=== PATIENT | female | born 1940 | race Two or more races ===

== ENCOUNTER 2017-05-05 15:31 | Inpatient (IN) | payer OTHER ==
--- NOTE | 2017-05-05 16:00 | CPEKG ---
Heart Rate: 61 RR Interval: 984 P-R Interval: 164 QRSD Interval: 98 QT Interval: 436 QTC Interval: 440 P [place]: 67 QRS [place]: 67 T Wave [place]: 55 EKG Severity - BORDERLINE ECG - EKG Impression: SINUS RHYTHM EKG Impression: BORDERLINE T ABNORMALITIES, ANT-LAT LEADS Electronically Signed By: Chayo Claros 05-May-2017 21:09:36
[2017-05-05] MEDS ORDERED: ASPIRIN 81 MG CHEWABLE TAB PO ONE (16:02)
[2017-05-05] MEDS ORDERED: NS 500 ML IV ONE (16:02)
[2017-05-05] MEDS ORDERED: NITROGLYCERIN 2% 1 GM PACKET TP ONE (16:02)
--- NOTE | 2017-05-05 16:14 | EDPHY ---
H & P Time Seen by Provider: 05/05/17 15:47 HPI/ROS: HPI: Joanna Hewitt is a 76 yrs, female who presents with Chief Complaint: chest pain Location: midsternum Quality: sharp, pressure, radiating to the back and down left arm Duration: started yesterday Signs and Symptoms: + nausea, + dyspnea on rest and exertion, no pedal edema, + vomiting x 1 lunch prior to arrival, no palpitations Timing: intermittent Severity: 9/10 at worst, currently 6/10 Context: history of HTN, HLD, hiatal hernia, anxiety, GERD. history obtained with the help of direct mail coordinator. takes NSAID daily. Modifying Factors: tried nothing for the symptoms. Comment: history of chest pain in past. Left heart catheterization 06/25/13 showing mild nonobstructive disease. Nuclear stress test 03/22/15 showing LVEF 86 %, no ischemia. ROS: Eyes: No blurred vision Respiratory: No shortness of breath, no cough Cardiovascular: + chest pain Gastrointestinal: + nausea, + vomiting no diarrhea Genitourinary: No dysuria Extremities: No myalgias Neurologic: No weakness, no numbness Skin: No rashes Hematologic: No bruising, no bleeding MEDICAL/SURGICAL HISTORY: Hypertension, hyperlipidemia, anxiety, GERD, hiatal hernia. ovary removal. Social History: non-smoker, non-drinker, strong family support. Smoking Status: Never smoked Constitutional: Initial Vital Signs Temperature (C) 36.6 C 05/05/17 15:40 Heart Rate 63 05/05/17 15:40 Respiratory Rate 16 05/05/17 15:40 Blood Pressure 172/64 H 05/05/17 15:40 O2 Sat (%) 95 05/05/17 15:40 O2 Delivery Mode Room Air Allergies/Adverse Reactions: No Known Allergies Allergy (Verified 05/05/17 15:39) Home Medications: Medication Instructions Recorded Aspirin [Aspirin 81mg (*)] 81 mg PO DAILY 03/21/15 Losartan Potassium [Cozaar] 100 mg PO DAILY 03/21/15 Meloxicam [Mobic 7.5 mg] 7.5 mg PO DAILY 03/21/15 Metoprolol Tartrate [Lopressor 100 50 mg PO BID 03/21/15 mg (*)] Omeprazole [Prilosec 20 mg] 20 mg PO BID 03/21/15 Potassium Cl [Klor-Con 10 meq (RX)] 10 meq PO DAILY 03/21/15 Rabeprazole Sodium [Aciphex] 20 mg PO DAILY 03/21/15 Ranitidine HCl 150 mg PO BID 03/21/15 Venlafaxine HCl 50 mg PO DAILY 03/21/15 clonazePAM [Klonopin (*)] 0.25 mg PO HS PRN 03/21/15 Abilify 05/05/17 Medical Decision Making - Diagnostics EKG Interpretation: 12 lead EKG: Indication: chest pain Rhythm: sinus [place]: normal QRS: normal ST segments: nonspecific T wave: nonspecific changes COMPARISON: compared to ECG 03/22/15 with T wave changes V3-V6 The 12 lead EKG was interpreted by myself. Imaging Results: Imaging Impressions Abdomen Ultrasound 05/05/17 16:03 IMPRESSION: Gallbladder adenomyomatosis, sludge, and cholelithiasis with a positive sonographic Paula sign and a mildly thickened wall. Cholecystitis is therefore not excluded. There is no bile duct dilatation. If there is further clinical concern regarding the patient's symptoms, at a nuclear medicine hepatobiliary scan could be considered. Findings were discussed with Eleanor Ambriz PA-C at 17:27, on 05/05/2017. Chest X-Ray 05/05/17 16:03 Impression: 1. Query COPD with no superimposed acute abnormality identified. 2. A source for chest pain is not identified. 3. See above report for additional findings. ED Course/Re-evaluation: CXR, labs, EKG, oral/topical medications, IVF RUQ US SYD risk factor = Intermediate Given aspirin and nitro paste ECG showed T waves changes, unremarkable troponin, will need medical evaluation/ pre-op clearance if surgery needed elevated LFTS/lipase/total and direct bili consistent with gallstone pancreatitis called by radiology with RUQ US showing stones/sludge + Paula's sign, CBD 5.6 consistent with cholecystitis NPO, IVF, Invanz 6:00 PM ED decision to admit, spoke with (Hospitalist) Dr. Gaines, and Dr. Barnhart (surgery) for continued care Differential Diagnosis: Chest pain including but not limited to myocardial ischemia, pulmonary embolus, chest wall pain, pleural inflammation and pulmonary infectious causes, GERD, hiatal hernia. - Data Points Laboratory Results: Laboratory Results 05/05/17 17:57 05/05/17 05/05/17 05/05/17 17:57 17:57 09:18 WBC 13.34 10^3/uL H 10^3/uL (3.80-9.50) RBC 5.10 10^6/uL 10^6/uL (4.18-5.33) Hgb 15.8 g/dL g/dL (12.6-16.3) Hct 45.2 % % (38.0-47.0) MCV 88.6 fL fL (81.5-99.8) MCH 31.0 pg pg (27.9-34.1) MCHC 35.0 g/dL g/dL (32.4-36.7) RDW 11.9 % % (11.5-15.2) Plt Count 206 10^3/uL 10^3/uL (150-400) MPV Neut % (Auto) Lymph % (Auto) [place] % (Auto) Eos % (Auto) Baso % (Auto) Nucleat RBC Rel Count Absolute Neuts (auto) Absolute Lymphs (auto) Absolute Monos (auto) Absolute Eos (auto) Absolute Basos (auto) Absolute Nucleated RBC Immature Gran % Immature Gran # Sodium Pending 136 mEq/L mEq/L (134-144) Potassium Pending 3.8 mEq/L mEq/L (3.5-5.2) Chloride Pending 99 mEq/L mEq/L (97-110) Carbon Dioxide Pending 24 mEq/l mEq/l (22-31) Anion Gap Pending 13 mEq/L mEq/L (8-16) BUN Pending 18 mg/dL mg/dL (7-23) Creatinine Pending 0.8 mg/dL mg/dL (0.6-1.0) Estimated GFR Pending > 60 Glucose Pending 130 mg/dL H mg/dL (70-100) Calcium Pending 10.1 mg/dL mg/dL (8.5-10.4) Total Bilirubin Pending 2.1 mg/dL H mg/dL (0.1-1.4) Conjugated Bilirubin 1.5 mg/dL H mg/dL (0.0-0.5) Unconjugated Bilirubin 0.6 mg/dL mg/dL (0.0-1.1) AST Pending 187 IU/L H IU/L (14-46) ALT Pending 119 IU/L H IU/L (9-52) Alkaline Phosphatase Pending 160 IU/L H IU/L (38-126) Creatine Kinase 68 IU/L IU/L (0-156) CK-MB (CK-2) Fraction 1.16 ng/mL ng/mL (0-3.19) Troponin I < 0.012 ng/mL ng/mL (0-0.034) NT-Pro-B Natriuret Pep 185 pg/mL pg/mL (0-450) Total Protein Pending 7.8 g/dL g/dL (6.3-8.2) Albumin Pending 4.9 g/dL g/dL (3.5-5.0) Lipase Pending > 08079.0 IU/L H IU/L (23-300) 05/05/17 09:18 WBC 12.24 10^3/uL H 10^3/uL (3.80-9.50) RBC 5.37 10^6/uL H 10^6/uL (4.18-5.33) Hgb 16.4 g/dL H g/dL (12.6-16.3) Hct 47.3 % H % (38.0-47.0) MCV 88.1 fL fL (81.5-99.8) MCH 30.5 pg pg (27.9-34.1) MCHC 34.7 g/dL g/dL (32.4-36.7) RDW 12.0 % % (11.5-15.2) Plt Count 226 10^3/uL 10^3/uL (150-400) MPV 10.2 fL fL (8.7-11.7) Neut % (Auto) 78.6 % H % (39.3-74.2) Lymph % (Auto) 13.8 % L % (15.0-45.0) [place] % (Auto) 5.9 % % (4.5-13.0) Eos % (Auto) 0.7 % % (0.6-7.6) Baso % (Auto) 0.5 % % (0.3-1.7) Nucleat RBC Rel Count 0.0 % % (0.0-0.2) Absolute Neuts (auto) 9.63 10^3/uL H 10^3/uL (1.70-6.50) Absolute Lymphs (auto) 1.69 10^3/uL 10^3/uL (1.00-3.00) Absolute Monos (auto) 0.72 10^3/uL 10^3/uL (0.30-0.80) Absolute Eos (auto) 0.08 10^3/uL 10^3/uL (0.03-0.40) Absolute Basos (auto) 0.06 10^3/uL 10^3/uL (0.02-0.10) Absolute Nucleated RBC 0.00 10^3/uL 10^3/uL (0-0.01) Immature Gran % 0.5 % % (0.0-1.1) Immature Gran # 0.06 10^3/uL 10^3/uL (0.00-0.10) Sodium Potassium Chloride Carbon Dioxide Anion Gap BUN Creatinine Estimated GFR Glucose Calcium Total Bilirubin Conjugated Bilirubin Unconjugated Bilirubin AST ALT Alkaline Phosphatase Creatine Kinase CK-MB (CK-2) Fraction Troponin I NT-Pro-B Natriuret Pep Total Protein Albumin Lipase Medications Given: Discontinued Medications Aspirin (Aspirin) 324 mg PO EDNOW ONE Stop: 05/05/17 16:03 Last Admin: 05/05/17 16:17 Dose: 324 mg Sodium Chloride (Ns) 500 mls @ 1,000 mls/hr IV ONCE ONE PRN Reason: Protocol Stop: 05/05/17 16:31 Last Admin: 05/05/17 16:19 Dose: 500 mls Nitroglycerin (Nitro-Bid 2%) 0.5 inch TP EDNOW ONE Stop: 05/05/17 16:03 Last Admin: 05/05/17 16:19 Dose: 0.5 inch Departure - Departure Disposition: [facility] Acute Clinical Impression: Acute gallstone pancreatitis, Cholecystitis, acute with cholelithiasis Condition: Fair Referrals: Miryam Juares MD [Primary Care Provider] - As per Instructions
[2017-05-05 16:18] LABS: % IMMATURE GRANULYOCYTES 0.5 % (0.0-1.1); ABSOLUTE IMMATURE GRANULOCYTES 0.06 10^3/uL (0.00-0.10); ADD DIFF? NO; ADD MORPH? NO; ADD SCAN? NO; ATYPICAL LYMPHOCYTE FLAG 10 (0-99); FRAGMENT RBC FLAG 0 (0-99); HEMATOCRIT 47.3 % (38.0-47.0); HEMOGLOBIN 16.4 g/dL (12.6-16.3); LEFT SHIFT FLG 0 (0-99); LIPEMIA HEMOLYSIS FLAG 90 (0-99); MEAN CELL HEMOGLOBIN 30.5 pg (27.9-34.1); MEAN CELL HEMOGLOBIN CONCENTR. 34.7 g/dL (32.4-36.7); MEAN CELL VOLUME 88.1 fL (81.5-99.8); MEAN PLATELET VOLUME 10.2 fL (8.7-11.7); PLATELET CLUMPS FLAG 0 (0-99); PLATELET COUNT 226 10^3/uL (150-400); RED BLOOD CELL COUNT 5.37 10^6/uL (4.18-5.33)
[2017-05-05 16:45] LABS: ALANINE AMINOTRANSFERASE 119 IU/L (9-52); ALBUMIN 4.9 g/dL (3.5-5.0); ALKALINE PHOSPHATASE 160 IU/L (38-126); ANION GAP 13 mEq/L (8-16); ASPARTATE AMINOTRANSFERASE 187 IU/L (14-46); BILIRUBIN,TOTAL 2.1 mg/dL (0.1-1.4); BILIRUBIN-CONJUGATED 1.5 mg/dL (0.0-0.5); BILIRUBIN-UNCONJUGATED 0.6 mg/dL (0.0-1.1); CALCIUM 10.1 mg/dL (8.5-10.4); CARBON DIOXIDE 24 mEq/l (22-31); CHLORIDE 99 mEq/L (97-110); CREATININE 0.8 mg/dL (0.6-1.0); GLOMERULAR FILTRATION RATE > 60; GLUCOSE 130 mg/dL (70-100); POTASSIUM 3.8 mEq/L (3.5-5.2); SODIUM 136 mEq/L (134-144); TOTAL PROTEIN 7.8 g/dL (6.3-8.2)
[2017-05-05 16:55] LABS: CREATINE KINASE-MB FRACTION 1.16 ng/mL (0-3.19)
[2017-05-05 16:57] LABS: TROPONIN I < 0.012 ng/mL (0-0.034)
[2017-05-05] MEDS ORDERED: ERTAPENEM 1 GM in NS 100 ML IV ONE (17:43)
[2017-05-05 18:05] LABS: HEMATOCRIT 45.2 % (38.0-47.0); HEMOGLOBIN 15.8 g/dL (12.6-16.3); MEAN CELL VOLUME 88.6 fL (81.5-99.8); RED BLOOD CELL COUNT 5.1 10^6/uL (4.18-5.33); RED CELL DISTRIBUTION WIDTH 11.9 % (11.5-15.2)
[2017-05-05] MEDS: NS 1,000 ML IV SCH (18:10)
[2017-05-05 18:26] LABS: ALANINE AMINOTRANSFERASE 210 IU/L (9-52); ALBUMIN 4.2 g/dL (3.5-5.0); ALKALINE PHOSPHATASE 172 IU/L (38-126); ANION GAP 15 mEq/L (8-16); ASPARTATE AMINOTRANSFERASE 368 IU/L (14-46); BILIRUBIN,TOTAL 2.5 mg/dL (0.1-1.4); CALCIUM 9.8 mg/dL (8.5-10.4); CARBON DIOXIDE 22 mEq/l (22-31); CHLORIDE 101 mEq/L (97-110); CREATININE 0.8 mg/dL (0.6-1.0); GLOMERULAR FILTRATION RATE > 60; GLUCOSE 109 mg/dL (70-100); SODIUM 138 mEq/L (134-144); TOTAL PROTEIN 7.3 g/dL (6.3-8.2)
[2017-05-05 18:46] LABS: BILIRUBIN-CONJUGATED 1.9 mg/dL (0.0-0.5); BILIRUBIN-UNCONJUGATED 0.6 mg/dL (0.0-1.1)
[2017-05-05] MEDS ORDERED: ONDANSETRON 4 MG/2 ML VIAL IVP PRN (20:03)
[2017-05-05] MEDS ORDERED: ONDANSETRON DISINTEGRATING 4 MG TAB PO PRN (20:03)
[2017-05-05] MEDS ORDERED: ACETAMINOPHEN 325 MG TAB PO PRN (20:03)
[2017-05-05] MEDS ORDERED: PROMETHAZINE HCL 25 MG/ML INJ IVP PRN (20:03)
--- NOTE | 2017-05-05 20:40 | GCON ---
[f rep st] CONSULTATION SURGERY CONSULTATION DATE OF CONSULTATION: 05/05/2017 REFERRING PHYSICIAN: Eleanor Ambriz PA-C HISTORY OF PRESENT ILLNESS: The patient is a 76-year-old woman, who presented to the emergency room due to abdominal pain and chest pain. She reported initially that it was in her chest and radiated down her arm. It started yesterday. She also reported symptoms of right upper quadrant pain that was worse after eating that caused nausea. It is intermittent. Nothing has made the pain better. Nothing has made it worse. PAST MEDICAL HISTORY: Hypertension, hyperlipidemia, anxiety, gastroesophageal reflux disease, hiata l hernia. PAST SURGICAL HISTORY: Ovarian surgery. SOCIAL HISTORY: She has strong family support. She denies tobacco or alcohol use. REVIEW OF SYSTEMS: Per 10-point review of systems, negative except per HPI. PHYSICAL EXAMINATION: VITAL SIGNS: 36.6, 63, 172/64, 16, 95% room air. GENERAL: Pleasant, well-no urished, well-groomed woman, appears stated age. Lying on bed. HEENT: Normocephalic. No gross he aring deficits. Mucous membranes moist. Pupils equal and round. No scleral icterus. LUNGS: Marina r to auscultation bilaterally. No increased work of breathing. CARDIAC: Regular rate. No periphe ral edema. ABDOMEN: Bowel sounds present. She is soft. She is tender in the right upper quadrant . SKIN: Warm and dry. PSYCH: Mood and affect normal. NEURO: Grossly intact. LABORATORY DATA: Results reviewed. White blood cell count is 13.34. Her chemistry panel reveals a normal basic metabolic panel. Her total bilirubin is 2.5 with a direct bilirubin of 1.9. AST is 3 68, ALT 210, alkaline phosphatase 172 and her lipase is 10,000. She had an ultrasound obtained which showed sludge and cholelithiasis with a sonographic Paula sign . Mildly thickened wall. There was no biliary ductal dilatation. IMPRESSION AND PLAN: The patient is a 76-year-old woman with gallstone pancreatitis. She may also have a component of choledocholithiasis. At this time, we will keep her n.p.o. She is being admitt ed to the hospitalist service due to her cardiac history and her chest pain. If her direct bilirubi n is up in the morning, then we will need to consider MRCP or ERCP. We also are waiting for her villeda creatitis to continue to trend down. She will likely benefit from a cholecystectomy. /[id number]/MODL
--- NOTE | 2017-05-05 21:53 | CPEKG ---
Heart Rate: 61 RR Interval: 984 P-R Interval: 172 QRSD Interval: 90 QT Interval: 452 QTC Interval: 456 P [place]: 54 QRS [place]: 49 T Wave [place]: 92 EKG Severity - ABNORMAL ECG - EKG Impression: SINUS RHYTHM EKG Impression: NONSPECIFIC T ABNORMALITIES, ANT-LAT LEADS Electronically Signed By: Jon Lopez 06-May-2017 09:08:48
--- NOTE | 2017-05-05 22:26 | GHP ---
[f rep st] HISTORY AND PHYSICAL DATE OF ADMISSION: 05/05/2017 CHIEF COMPLAINT: Chest pain. HISTORY OF PRESENT ILLNESS: This is a 76-year-old female who has a past medical history of hyperten [place] and mild nonobstructive coronary artery disease, who presents with a chief complaint of 2 days of chest versus mid epigastric pain that involves both arms and her back. She notes it was present this morning and she does not recall exactly what seemed to precipitate the pain. She denies that i t was associated with eating or exertion. It was associated with some nausea and vomiting. She sta claudia it was very similar to pain she has had in the past, including once in 2012 and once again in , during which time she was worked up for chest pain and underwent once a coronary angiography and one other time a cardiac stress test. Both her angiogram and her stress test were essentially unre markable other than mild nonobstructive coronary disease. At the time of my evaluation, her chest p ain has resolved but she still has tenderness to palpation in the mid-epigastric region. On workup in the ER it was noted that she had a lipase greater than 20,000 and elevated LFTs, as well as an ab dominal ultrasound concerning for cholelithiasis with possible concurrent cholecystitis and gallston e pancreatitis. Surgery was consulted, and I was asked to admit and evaluate the patient for possib le cardiac etiology for her pain. The patient was interpreted with the aid of educational interpreter leia triana at bedside. PAST MEDICAL HISTORY: 1. Hypertension. 2. Mild nonobstructive coronary artery disease. 3. Hyperlipidemia. 4. GERD. 5. Hiatal hernia. SOCIAL HISTORY: The patient is a nonsmoker and nondrinker. She has 2 children who live in town. H er son is present with her at the bedside. She is Austrian-speaking only. FAMILY HISTORY: This was reviewed and is noncontributory. REVIEW OF SYSTEMS: Ten-point review of systems obtained, negative except as per HPI. MEDICATIONS: These need to be verified but include: 1. Abilify. 2. Klonopin. 3. Venlafaxine. 4. Ranitidine. 5. AcipHex. 6. Potassium chloride. 7. Omeprazole. 8. Metoprolol. 9. Meloxicam. 10. Losartan. 11. Aspirin. ALLERGIES: No known drug allergies. PHYSICAL EXAM: VITAL SIGNS: BP 161/68, heart rate 61, respiratory rate 16, O2 sats 95% on room air . Temperature is 36.8. GENERAL APPEARANCE: This is a well-developed/well-nourished female. She i s in no acute distress. EYES: Anicteric. HENT: Oropharynx is clear, MMM. CARDIOVASCULAR: RRR, no MRG. PULMONARY: CTA bilaterally. Normal work of breathing. ABDOMEN: Soft, decreased bowel so unds, tenderness to palpation in the mid-epigastric region without rebound or guarding. Abdomen is mildly distended. EXTREMITIES: No clubbing, cyanosis, or edema. Skin warm and dry, well perfused. PULMONARY: Lungs are clear to auscultation bilaterally. SKIN: Warm and dry, well perfused. [place] RO/PSYCH: Oriented and appropriate, pleasant. CLINICAL DATA: White blood cell count of 13.3, hematocrit of 45.2. Chemistry is notable for a tota l bilirubin of 2.5, AST 368, ALT 210, alkaline phosphatase of 172, lipase greater than 20,000. EKG, personally reviewed and interpreted: Shows sinus rhythm. There are borderline T-wave inversio ns and flattening in anterolateral leads. When compared with prior, is essentially unchanged. Chest x-ray, personally reviewed and interpreted: Shows no acute abnormalities. Abdominal ultrasound: Showing gallbladder adenomyomatosis, sludge and cholelithiasis, as well as a positive sonographic Paula sign and mildly thickened wall, consistent with cholecystitis. No bilia ry ductal dilatation. ASSESSMENT/PLAN: This is a 76-year-old female with a past medical history of mild nonobstructive co ronary disease as well as hypertension who presents with epigastric versus chest pain and gallstone pancreatitis. 1. Gallstone pancreatitis. Difficult to exclude concurrent cholecystitis. She will be started on Invanz and kept n.p.o. Liver function tests will continue to trend as she may need GI involvement a s well. General Surgery has been consulted and likely will proceed with a cholecystectomy during [facility] hospitalization, though it is unclear when this will occur. 2. Chest pain. Suspect this is all related to her gallstone pancreatitis rather than a 2nd problem for this patient. She has had workups twice in the past, including a cardiac catheterization and a nuclear stress test in 2014, both of which were unremarkable. I will get another set of troponins and another EKG in the morning, but as long as these remain negative, I do not feel she needs a furt her cardiac workup prior to proceeding with definitive treatment, including surgery, for her gallsto ne pancreatitis. 3. Elevated liver function tests. Again, at this point, concerning for possible concurrent choledo cholithiasis. If these continue to trend up, GI will need to be consulted. For now, General Surger y is involved. 4. Hypertension. Blood pressure is mildly elevated in the setting of significant pain. When her h ome medications are reconciled, she will be started back on her usual home medications. 5. Gastroesophageal reflux disease. We will continue proton pump inhibitors. DISPOSITION: Inpatient status. The patient will need greater than a 48-hour stay for evaluation an d management of above. The patient is new to my care. Old records reviewed and summarized, as per HPI and past medical his tory. Care plan reviewed with ER physician, including plans for surgical consultation. /[id number]/MODL
[2017-05-06 05:06] LABS: % IMMATURE GRANULYOCYTES 0.3 % (0.0-1.1); ABSOLUTE IMMATURE GRANULOCYTES 0.02 10^3/uL (0.00-0.10); ADD DIFF? NO; ADD MORPH? NO; ADD SCAN? NO; ATYPICAL LYMPHOCYTE FLAG 0 (0-99); FRAGMENT RBC FLAG 0 (0-99); HEMATOCRIT 41.9 % (38.0-47.0); HEMOGLOBIN 14.3 g/dL (12.6-16.3); LEFT SHIFT FLG 0 (0-99); LIPEMIA HEMOLYSIS FLAG 90 (0-99); MEAN CELL HEMOGLOBIN 30.6 pg (27.9-34.1); MEAN CELL HEMOGLOBIN CONCENTR. 34.1 g/dL (32.4-36.7); MEAN CELL VOLUME 89.7 fL (81.5-99.8); MEAN PLATELET VOLUME 10.3 fL (8.7-11.7); PLATELET CLUMPS FLAG 0 (0-99); PLATELET COUNT 193 10^3/uL (150-400); RED BLOOD CELL COUNT 4.67 10^6/uL (4.18-5.33); RED CELL DISTRIBUTION WIDTH 12.1 % (11.5-15.2)
[2017-05-06 05:25] LABS: ALANINE AMINOTRANSFERASE 253 IU/L (9-52); ALBUMIN 3.5 g/dL (3.5-5.0); ALKALINE PHOSPHATASE 155 IU/L (38-126); ANION GAP 9 mEq/L (8-16); ASPARTATE AMINOTRANSFERASE 238 IU/L (14-46); BILIRUBIN,TOTAL 1.2 mg/dL (0.1-1.4); BILIRUBIN-CONJUGATED 0.6 mg/dL (0.0-0.5); BILIRUBIN-UNCONJUGATED 0.6 mg/dL (0.0-1.1); CALCIUM 9.1 mg/dL (8.5-10.4); CARBON DIOXIDE 21 mEq/l (22-31); CHLORIDE 109 mEq/L (97-110); CREATININE 0.7 mg/dL (0.6-1.0); GLOMERULAR FILTRATION RATE > 60; GLUCOSE 78 mg/dL (70-100); POTASSIUM 3.7 mEq/L (3.5-5.2); SODIUM 139 mEq/L (134-144); TOTAL PROTEIN 6.1 g/dL (6.3-8.2)
[2017-05-06] MEDS: PANTOPRAZOLE SODIUM 40 MG TAB PO SCH (08:17)
--- NOTE | 2017-05-06 08:27 | HOSPPROG ---
Hospitalist Progress Note Assessment/Plan: Patient is a 76 y/o female who presented with chest pain and abdominal pain. It was associated with nausea and vomiting. Today is my first encounter w the patient/ chart reviewed. Spoke w surgical team/ to go to OR today. She is Maltese speaking only/ met with her and her daughter with the deaf interpreter. *gallstone pancreatitis to go to OR for a cholecystectomy with Dr Barnhart *cp/ after talking w her via the deaf interpreter/this is chronic/ more likely reflux reviewed EKG's/ no sig change from one in May last year troponin is negative *Increase LFT's due to the above lipase is better *HTN resumed home meds *Non obstructive CAD resumed beta adam, holding asa in the setting of surgery * GERD and Hiatal hernia suspect these are causing her chronic chest pain resumed PPI on AcipHex *DVT prophylaxis: per surgery *Plan : OR today Subjective: Joanna is having 'cp' in the epigastric area/says it has been ongoing. Objective: Vital Signs Temp Pulse Resp BP Pulse Ox 36.9 C 58 L 12 163/74 H 93 05/06/17 07:20 05/06/17 07:20 05/06/17 07:20 05/06/17 07:20 05/06/17 07:20 Laboratory Results 05/06/17 04:20 05/06/17 04:30 05/05/17 05/06/17 05/07/17 05:59 05:59 05:59 Intake Total 750 1790 Balance 750 1790 - Physical Exam Constitutional: not in pain, uncomfortable Eyes: PERRL Ears, Nose, Mouth, Throat: hearing normal Cardiovascular: regular rate and rhythym, no murmur, rub, or gallop Respiratory: no respiratory distress, no rales or rhonchi Gastrointestinal: normoactive bowel sounds, soft, non-tender abdomen Skin: warm Neurologic: sensation intact bilaterally Psychiatric: interacting appropriately ICD10 Worksheet Patient Problems: Problems Problem Status Onset Acute gallstone pancreatitis Acute Cholecystitis, acute with cholelithiasis Acute Chest pain Acute
--- NOTE | 2017-05-06 08:31 | SOAPPROG ---
SOAP Progress Note Assessment/Plan: Assessment: 76yo F admitted with gallstone pancreatitis To OR today for lap ru. NPO. Consent in chart. Therapeutic antibiotics Lipase improved today Seen with Dr. Barnhart. Discussed with Roula HOLLAND S: feeling improved this morning. O: laying in bed, comfortable, NAD No increased WOB Tender mid-epigastrium Decreased BS Objective: Vital Signs Temp Pulse Resp BP Pulse Ox 36.9 C 58 L 12 163/74 H 93 05/06/17 07:20 05/06/17 07:20 05/06/17 07:20 05/06/17 07:20 05/06/17 07:20 Laboratory Results 05/06/17 04:20 05/06/17 04:30 05/05/17 05/06/17 05/07/17 05:59 05:59 05:59 Intake Total 750 1790 Balance 750 1790 ICD10 Worksheet Patient Problems: Problems Problem Status Onset Acute gallstone pancreatitis Acute Cholecystitis, acute with cholelithiasis Acute Chest pain Acute
--- NOTE | 2017-05-06 09:06 | CPEKG ---
Heart Rate: 59 RR Interval: 1017 P-R Interval: 180 QRSD Interval: 96 QT Interval: 444 QTC Interval: 440 P [place]: 49 QRS [place]: 47 T Wave [place]: 64 EKG Severity - BORDERLINE ECG - EKG Impression: SINUS RHYTHM EKG Impression: BORDERLINE T ABNORMALITIES, ANT-LAT LEADS Electronically Signed By: Jon Lopez 06-May-2017 11:50:32
[2017-05-06] MEDS ORDERED: NITROGLYCERIN 0.4 MG BTL SL PRN (10:15)
[2017-05-06] MEDS: METOPROLOL TARTRATE 100 MG TAB PO SCH ×2 (11:08→20:03)
[2017-05-06] MEDS ORDERED: LR 1,000 ML IV ONE (13:41)
[2017-05-06] MEDS ORDERED: BUPIVACAINE 0.5% 30 ML SDV ONE (13:51)
--- NOTE | 2017-05-06 14:54 | PDANEPAE ---
ANE History of Present Illness Patient presents for lap ru. ANE Past Medical History - Cardiovascular History Hx Hypertension: Yes - Pulmonary History Hx Oxygen in Use at Home: No Hx Sleep Apnea: No Sleep Apnea Screening Result - Last Documented: Positive - Endocrine History Hx Diabetes: No - Chronic Pain History Chronic Pain: No ANE Review of Systems - Exercise capacity Exercise capacity: limited by disability ANE Patient History - Allergies Allergies/Adverse Reactions: No Known Allergies Allergy (Verified 05/05/17 15:39) - Home Medications Home Medications: Aspirin [Aspirin 81mg (*)] 81 mg PO DAILY 03/21/15 [Last Taken Unknown] Losartan Potassium [Cozaar] 100 mg PO DAILY 03/21/15 [Last Taken Unknown] Meloxicam [Mobic 7.5 mg] 7.5 mg PO DAILY 03/21/15 [Last Taken Unknown] Metoprolol Tartrate [Lopressor 100 mg (*)] 50 mg PO BID 03/21/15 [Last Taken Unknown] Rabeprazole Sodium [Aciphex] 20 mg PO DAILY 03/21/15 [Last Taken Unknown] ARIPiprazole [Abilify 2 mg (*)] 1 mg PO DAILY 05/05/17 [Last Taken Unknown] Hydrochlorothiazide [HCTZ (*)] 12.5 mg PO DAILY 05/06/17 [Last Taken Unknown] NIFEdipine ER [Adalat CC 30 mg (*)] 30 mg PO DAILY 05/06/17 [Last Taken Unknown] Nitroglycerin [Nitrostat 0.4 mg (*)] 0.4 mg SL Q5M PRN 05/06/17 [Last Taken Unknown] Venlafaxine Xr [Effexor Xr 75MG (*)] 75 mg PO DAILY 05/06/17 [Last Taken Unknown ] - NPO status NPO Since - Liquids (Date): 05/06/17 NPO Since - Liquids (Time): 09:00 NPO Since - Solids (Date): 05/06/17 NPO Since - Solids (Time): 00:00 - Smoking Hx Smoking Status: Never smoked ANE Labs/Vital Signs - Labs Result Diagrams: 05/06/17 04:20 05/06/17 04:30 - Vital Signs Blood Pressure: 178/72 Heart Rate: 62 Respiratory Rate: 16 O2 Sat (%): 97 Height: 149.86 cm Weight: 65.771 kg ANE Anesthesia Plan Anesthesia Plan: general endotracheal anesthesia (rba discussed, patient agrees to proceed)
[2017-05-06] MEDS ORDERED: PROPOFOL 200 MG/20 ML VIAL ONE ×2 (15:01→15:59)
[2017-05-06] MEDS ORDERED: fentaNYL 100 MCG/2 ML INJ ONE ×3 (15:01→15:59)
[2017-05-06] MEDS ORDERED: LIDOCAINE 2% 5 ML SDV ONE (15:12)
[2017-05-06] MEDS ORDERED: DEXAMETHASONE 4 MG/ML VIAL ONE (15:35)
[2017-05-06] MEDS ORDERED: ONDANSETRON 4 MG/2 ML VIAL ONE ×2 (15:35→16:50)
[2017-05-06] MEDS ORDERED: ROCURONIUM 50 MG/5 ML VIAL ONE ×2 (15:36)
[2017-05-06] MEDS ORDERED: fentaNYL 100 MCG/2 ML INJ IVP PRN (15:42)
[2017-05-06] MEDS ORDERED: NALOXONE HCL 0.4 MG/ML INJ IVP PRN (15:42)
[2017-05-06] MEDS ORDERED: ONDANSETRON 4 MG/2 ML VIAL IVP PRN (15:42)
[2017-05-06] MEDS ORDERED: ESMOLOL HCL 100 MG/10 ML VIAL IV ONE (15:44)
[2017-05-06] MEDS ORDERED: PHENYLEPHRINE HCL 100 MCG/ML SYR ONE (16:15)
--- NOTE | 2017-05-06 16:17 | POSTOPPROG ---
Post Op Note Date of Operation: 05/06/17 Surgeon: Radha Barnhart Anesthesiologist: mitch Anesthesia: GET(General Endotracheal) Pre-op Diagnosis: gallstone pancreatitis Post-op Diagnosis: same Indication: 76 yo with gallstone pancreatitis Procedure: lap ru Findings: stone milked out of cystic duct Inf/Abcess present in the surg proc area at time of surgery?: No EBL: Minimal Specimen(s): gallbladder
--- NOTE | 2017-05-06 16:30 | POSTANESTH ---
Post Anesthetic Evaluation Cardiovascular Status: Normal, Stable Respiratory Status: Normal, Stable Level of Consciousness/Mental Status: Can Participate in Eval, Mildly Sleepy, Arousable Pain Control: Adequate, Prn Tx Ordered Nausea/Vomiting Control: Adequate, Prn Tx Ordered Complications Possibly Related to Anesthesia: None Noted
[2017-05-06] MEDS: ERTAPENEM 1 GM in NS 100 ML IV SCH (17:49)
[2017-05-06] MEDS: NS 1,000 ML IV SCH (21:47)
[2017-05-06] MEDS: HYDROmorphONE/DILAUDID 1 MG/ML SYR IVP PRN (21:50)
[2017-05-07] MEDS: HYDROmorphONE/DILAUDID 1 MG/ML SYR IVP PRN (04:21)
[2017-05-07 04:41] LABS: % IMMATURE GRANULYOCYTES 0.4 % (0.0-1.1); ABSOLUTE IMMATURE GRANULOCYTES 0.04 10^3/uL (0.00-0.10); ADD DIFF? NO; ADD MORPH? NO; ADD SCAN? NO; ATYPICAL LYMPHOCYTE FLAG 0 (0-99); FRAGMENT RBC FLAG 0 (0-99); HEMATOCRIT 38.4 % (38.0-47.0); HEMOGLOBIN 12.7 g/dL (12.6-16.3); LEFT SHIFT FLG 10 (0-99); LIPEMIA HEMOLYSIS FLAG 80 (0-99); MEAN CELL HEMOGLOBIN 30.2 pg (27.9-34.1); MEAN CELL HEMOGLOBIN CONCENTR. 33.1 g/dL (32.4-36.7); MEAN CELL VOLUME 91.4 fL (81.5-99.8); MEAN PLATELET VOLUME 10.1 fL (8.7-11.7); PLATELET CLUMPS FLAG 0 (0-99); PLATELET COUNT 181 10^3/uL (150-400); RED CELL DISTRIBUTION WIDTH 12.5 % (11.5-15.2)
[2017-05-07 04:57] LABS: ALANINE AMINOTRANSFERASE 199 IU/L (9-52); ALBUMIN 2.9 g/dL (3.5-5.0); ALKALINE PHOSPHATASE 131 IU/L (38-126); ANION GAP 10 mEq/L (8-16); ASPARTATE AMINOTRANSFERASE 155 IU/L (14-46); BILIRUBIN,TOTAL 0.7 mg/dL (0.1-1.4); CALCIUM 8.6 mg/dL (8.5-10.4); CARBON DIOXIDE 20 mEq/l (22-31); CHLORIDE 109 mEq/L (97-110); CREATININE 0.9 mg/dL (0.6-1.0); GLOMERULAR FILTRATION RATE > 60; GLUCOSE 115 mg/dL (70-100); POTASSIUM 4.1 mEq/L (3.5-5.2); SODIUM 139 mEq/L (134-144); TOTAL PROTEIN 5.4 g/dL (6.3-8.2)
[2017-05-07] MEDS: METOPROLOL TARTRATE 100 MG TAB PO SCH ×2 (08:08→19:59)
[2017-05-07] MEDS: LOSARTAN POTASSIUM 50 MG TAB PO SCH (08:08)
[2017-05-07] MEDS: VENLAFAXINE XR 75 MG CAP PO SCH (08:08)
[2017-05-07] MEDS: PANTOPRAZOLE SODIUM 40 MG TAB PO SCH (08:09)
--- NOTE | 2017-05-07 08:49 | GOP ---
[f rep st] OPERATIVE REPORT DATE OF OPERATION: 05/06/2017 SURGEON: Radha Barnhart MD ANESTHESIA: Js Weeks MD PREOPERATIVE DIAGNOSIS: Gallstone pancreatitis. POSTOPERATIVE DIAGNOSIS: Gallstone pancreatitis. PROCEDURE PERFORMED: Laparoscopic cholecystectomy. FINDINGS: inflammation by triangle of calot. SPECIMENS: Gallbladder. ESTIMATED BLOOD LOSS: 20 cc. INDICATIONS: The patient is a 76-year-old, who presented with gallstone pancreatitis. Her labs improved and she was ready for cholecystectomy. DESCRIPTION OF PROCEDURE: The patient was brought into the operating room, placed supine on the table, and general anesthesia was administered. Her abdomen was prepped and draped in the usual sterile fashion. I infiltrated all sites with 0.5% Marcaine prior to making incisions. I made an incision by her umbilicus. I elevated it, and I inserted the Veress needle and it passed the hanging drop test. Her abdomen insufflated easily to a pressure of 15 mmHg. Under direct vision, I placed a 10 mm trocar at the subxiphoid area and two 5 mm trocars along the right costal margin. I lifted her gallbladder cephalad and laterally to expose the triangle of Calot. It was very edematous in this area, and I performed careful dissection in order to skeletonize the cystic artery and cystic duct. Once the cystic duct was skeletonized, I milked the stone up into the neck of the gallbladder. I singly clipped the cystic duct proximally and doubly clipped it distally, and transected it with scissors. Next, I skeletonized the cystic artery and singly clipped it on each side and divided it with scissors. I removed the gallbladder from the gallbladder fossa with electrocautery. I placed the EndoCatch bag and retrieved via the 10 mm trocar. Hemostasis was achieved on the liver bed with electrocautery. Suction irrigation was performed. Mitchell was placed on the liver bed. I examined her abdomen. There were no injuries from Veress needle placement. The clips were in satisfactory position. She had the ports removed under direct vision and the abdomen was allowed to desufflate. Facia closed with 0-Vicryl and skin closed with 4-0 Monocryl. Dermabond applied. She was awakened in the operating room. She was extubated and transferred to PACU in stable condition. /[id number]/MODL MTDD
[2017-05-07] MEDS ORDERED: NON-FORMULARY NEW DRUG (Losartan Potassium [Cozaar] 100 MG) PO SCH (09:00)
[2017-05-07] MEDS: ARIPiprazole 2 MG TAB PO SCH (09:17)
[2017-05-07] MEDS: NIFEdipine ER 30 MG TAB PO SCH (09:18)
--- NOTE | 2017-05-07 10:13 | HOSPPROG ---
Hospitalist Progress Note Assessment/Plan: Patient is a 76 y/o female who presented with chest pain and abdominal pain. It was associated with nausea and vomiting. *gallstone pancreatitis s/p laparoscopic ru POD #1 patient feeling well *cp/ after talking w her via the parking enforcement officer/this is chronic/ more likely reflux reviewed EKG's/ no sig change from one in May last year troponin is negative none further *Increase LFT's improveing lipase is better *HTN resumed home meds *Non obstructive CAD resumed beta adam, holding asa in the setting of surgery * GERD and Hiatal hernia suspect these are causing her chronic chest pain resumed PPI on AcipHex *DVT prophylaxis: per surgery *Plan : patient tolerating cl liquids/ wants to go home, but hasn't passed gas/ will f/u later with her. Subjective: Joanna is feeling fine/ no c/o pain. Objective: Vital Signs Temp Pulse Resp BP Pulse Ox 37.1 C 65 16 144/55 H 94 05/07/17 07:26 05/07/17 08:08 05/07/17 07:26 05/07/17 08:08 05/07/17 07:26 Laboratory Results 05/07/17 04:12 05/07/17 04:12 05/06/17 05/07/17 05/08/17 05:59 05:59 05:59 Intake Total 750 4622 Balance 750 4622 - Physical Exam Constitutional: no apparent distress, appears nourished, not in pain Eyes: anicteric sclera Ears, Nose, Mouth, Throat: hearing normal Cardiovascular: regular rate and rhythym Respiratory: no respiratory distress Gastrointestinal: other (incision sites clear without redness or drainage), No normoactive bowel sounds (hypoactive) Skin: warm Musculoskeletal: no muscle tenderness Neurologic: AAOx3 Psychiatric: interacting appropriately ICD10 Worksheet Patient Problems: Problems Problem Status Onset Acute gallstone pancreatitis Acute Cholecystitis, acute with cholelithiasis Acute Chest pain Acute
[2017-05-07] MEDS: traMADol 50 MG TAB PO PRN ×2 (11:23→17:13)
--- NOTE | 2017-05-07 13:10 | SOAPPROG ---
SOAP Progress Note Assessment/Plan: Assessment: AFEBRILE, NONICTERIC/ LFTS UP BUT LIPASE DOWN/ WOUNDS OK/ CHEST CLEAR Plan:HOME IN AM/ ADVANCE DIET 05/07/17 13:09 Objective: Vital Signs Temp Pulse Resp BP Pulse Ox 37.1 C 57 L 16 145/60 H 91 L 05/07/17 11:54 05/07/17 11:54 05/07/17 11:54 05/07/17 11:54 05/07/17 11:54 Laboratory Results 05/07/17 04:12 05/07/17 04:12 05/06/17 05/07/17 05/08/17 05:59 05:59 05:59 Intake Total 750 4622 Balance 750 4622 ICD10 Worksheet Patient Problems: Problems Problem Status Onset Acute gallstone pancreatitis Acute Cholecystitis, acute with cholelithiasis Acute Chest pain Acute
[2017-05-07] MEDS: ERTAPENEM 1 GM in NS 100 ML IV SCH (16:23)
[2017-05-08 05:43] LABS: ALANINE AMINOTRANSFERASE 130 IU/L (9-52); ALBUMIN 2.8 g/dL (3.5-5.0); ALKALINE PHOSPHATASE 110 IU/L (38-126); ANION GAP 8 mEq/L (8-16); ASPARTATE AMINOTRANSFERASE 73 IU/L (14-46); BILIRUBIN,TOTAL 0.8 mg/dL (0.1-1.4); CALCIUM 8.7 mg/dL (8.5-10.4); CARBON DIOXIDE 23 mEq/l (22-31); CHLORIDE 107 mEq/L (97-110); CREATININE 0.8 mg/dL (0.6-1.0); GLOMERULAR FILTRATION RATE > 60; GLUCOSE 109 mg/dL (70-100); POTASSIUM 3.7 mEq/L (3.5-5.2); SODIUM 138 mEq/L (134-144); TOTAL PROTEIN 5.2 g/dL (6.3-8.2)
[2017-05-08 07:36] VITALS: TEMP 98.4
[2017-05-08] MEDS: ARIPiprazole 2 MG TAB PO SCH (09:51)
[2017-05-08] MEDS: VENLAFAXINE XR 75 MG CAP PO SCH (10:48)
[2017-05-08] MEDS: PANTOPRAZOLE SODIUM 40 MG TAB PO SCH (10:53)
[2017-05-08] MEDS: NIFEdipine ER 30 MG TAB PO SCH (10:53)
[2017-05-08] MEDS: LOSARTAN POTASSIUM 50 MG TAB PO SCH (10:54)
[2017-05-08] MEDS: METOPROLOL TARTRATE 100 MG TAB PO SCH (10:56)
[2017-05-08 11:56] VITALS: BP 125/65; PULSE 70; RESP 16; O2SAT 90
--- NOTE | 2017-05-08 12:06 | SOAPPROG ---
SOAP Progress Note Assessment/Plan: Assessment: AFEBRILE, NONICTERIC/ LFTS UP BUT LIPASE DOWN/ WOUNDS OK/ CHEST CLEAR Plan:HOME IN AM/ ADVANCE DIET 05/07/17 13:09 05/08/17 12:0H DOING WELL/AFEBRILE/EATING WELL/ABDOMEN SOFT NONTENDER/WOUND OKAY/ HOME TODAY/FOLLOW UP WITH DR. NICOLAS IN 10 DAYS Objective: Vital Signs Temp Pulse Resp BP Pulse Ox 36.9 C 70 16 125/65 H 90 L 05/08/17 11:56 05/08/17 11:56 05/08/17 11:56 05/08/17 11:56 05/08/17 11:56 Laboratory Results 05/07/17 04:12 05/08/17 04:18 05/07/17 05/08/17 05/09/17 05:59 05:59 05:59 Intake Total 4622 920 Balance 4622 920 ICD10 Worksheet Patient Problems: Problems Problem Status Onset Acute gallstone pancreatitis Acute Cholecystitis, acute with cholelithiasis Acute Chest pain Acute
--- NOTE | 2017-05-08 15:26 | GDS ---
[f rep st] DISCHARGE SUMMARY DISCHARGE DIAGNOSES: 1. Gallstone pancreatitis. 2. Increased liver function tests. 3. Hypertension. 4. Gastroesophageal reflux disease. CONSULTATIONS: Dr. Barnhart of Surgery. INTERVENTION: Laparoscopic cholecystectomy. PHYSICAL EXAM: GENERAL: The patient is alert. VITAL SIGNS: Afebrile at 36.9, pulse is 70, respir atory rate 16, blood pressure is 125/65, saturating 90% on room air. I have seen and evaluated the patient on the day of discharge. HOSPITAL COURSE: The patient is a 76-year-old female, who presented to the emergency room with comp laints of abdominal pain. She was evaluated and diagnosed with gallstone pancreatitis. During this hospitalization, she received laparoscopic cholecystectomy. Her condition has significantly improv ed. She is tolerating a regular diet, and has no specific complaints. She will continue regular lo w-fat diet. DISCHARGE MEDICATIONS: Please refer to EMR form. I have not provided the patient any prescriptions at the time of disposition. FOLLOWUP: Will be with Dr. Barnhart in 7-10 days, as well as her primary care physician, Dr. Miryam yanez as needed. I spent greater than 35 minutes in the care, coordination, and management of this patient's discharg e. I have reviewed her care with Dr. Gabino Urena. /[id number]/MODL
== END 2017-05-08 14:19 | disposition home or self-care (01) | DRG 419 ==
LOC: F3E 19:35
PROVIDERS: ADMIT Internal Medicine; ATTEND Internal Medicine
PROC: 0FT44ZZ Resection of Gallbladder, Percutaneous Endoscopic Approach (ICD-10-PCS; principal; 2017-05-06 14:15)
DX: K85.10 Biliary acute pancreatitis without necrosis or infection (principal); I10 Essential (primary) hypertension; K21.9 Gastro-esophageal reflux disease without esophagitis; E78.5 Hyperlipidemia, unspecified; I25.10 Atherosclerotic heart disease of native coronary artery without angina pectoris
CPT/HCPCS: 97161-GP; 97165-GO; J1100; J1170; J1335; J2370; J2405; J2704; J3010